=== PATIENT | female | born 1980 ===

== ENCOUNTER 2019-10-09 22:21 | Emergency (ER) | payer OTHER ==
[2019-10-09] MEDS ORDERED: LIDOCAINE 1% 20 ML MDV ONE (23:23)
[2019-10-09] MEDS ORDERED: HYDROCODONE/APAP 5/325 MG TAB ONE (23:23)
[2019-10-09] MEDS ORDERED: LIDOCAINE 1% W/EPI 1:100,000 MDV 20 ML VIAL ONE (23:26)
--- NOTE | 2019-10-09 23:41 | EDPHYS ---
Physician Documentation [facility] Name: Bing Mathew Age: 39 yrs Sex: Female : 1980 Arrival Date: 10/09/2019 Time: 22:24 Bed 14 Private MD: ED Physician Vincenzo Sesay HPI: 10/09 23:09 This 39 yrs old Female presents to ER via Ambulatory with complaints of Laceration To snw Foot. 23:09 The patient has a laceration related to: pushed foot too far under the base of a bar snw and a metal portion cut the dorsum of the foot. bleeding controlled occurred at home. The laceration(s) is(are) located on the left foot. Onset: The symptoms/episode began/occurred suddenly, just prior to arrival. Associated signs and symptoms: The patient has no apparent associated signs or symptoms. The patient has not experienced similar symptoms in the past. It is unknown whether or not the patient has recently seen a physician. tetanus up to date. 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 - Social history:: Smoking status: Patient/guardian denies using tobacco. - Ebola Screening: : No symptoms or risks identified at this time. ROS: 23:08 Constitutional: Negative for fever, chills, and weight loss, Eyes: Negative for injury, snw pain, redness, and discharge, ENT: Negative for injury, pain, and discharge, Neck: Negative for injury, pain, and swelling, Cardiovascular: Negative for chest pain, palpitations, and edema, Respiratory: Negative for shortness of breath, cough, wheezing, and pleuritic chest pain, Abdomen/GI: Negative for abdominal pain, nausea, vomiting, diarrhea, and constipation, Back: Negative for injury and pain, : Negative for injury, bleeding, discharge, and swelling, Skin: Negative for injury, rash, and discoloration, Neuro: Negative for headache, weakness, numbness, tingling, and seizure. 23:08 MS/extremity: Positive for injury or acute deformity, laceration, of the left foot. Exam: 23:06 Constitutional: This is a well developed, well nourished patient who is awake, alert, snw and in no acute distress. Head/Face: Normocephalic, atraumatic. Eyes: Pupils equal round and reactive to light, extra-ocular motions intact. Lids and lashes normal. Conjunctiva and sclera are non-icteric and not injected. Cornea within normal limits. Periorbital areas with no swelling, redness, or edema. ENT: Nares patent. No nasal discharge, no septal abnormalities noted. Tympanic membranes are normal and external auditory canals are clear. Oropharynx with no redness, swelling, or masses, exudates, or evidence of obstruction, uvula midline. Mucous membranes moist. Neck: Trachea midline, no thyromegaly or masses palpated, and no cervical lymphadenopathy. Supple, full range of motion without nuchal rigidity, or vertebral point tenderness. No Meningismus. Chest/axilla: Normal chest wall appearance and motion. Nontender with no deformity. No lesions are appreciated. Cardiovascular: Regular rate and rhythm with a normal S1 and S2. No gallops, murmurs, or rubs. Normal PMI, no JVD. No pulse deficits. Respiratory: Lungs have equal breath sounds bilaterally, clear to auscultation and percussion. No rales, rhonchi or wheezes noted. No increased work of breathing, no retractions or nasal flaring. Abdomen/GI: Soft, non-tender, with normal bowel sounds. No distension or tympany. No guarding or rebound. No evidence of tenderness throughout. Back: No spinal tenderness. No costovertebral tenderness. Full range of motion. MS/ Extremity: Pulses equal, no cyanosis. Neurovascular intact. Full, normal range of motion. Neuro: Awake and alert, GCS 15, oriented to person, place, time, and situation. Cranial nerves II-XII grossly intact. Motor strength 5/5 in all extremities. Sensory grossly intact. Cerebellar exam normal. Normal gait. Psych: Awake, alert, with orientation to person, place and time. Behavior, mood, and affect are within normal limits. 23:06 Skin: Appearance: normal except for affected area, injury, laceration(s), the wound is approximately 3 cm(s), with a depth of .5 cm(s), of the dorsum of left foot proximal to great toe, bleeding controlled, bleeding controlled, full ROM. Vital Signs: 22:34 BP 170 / 98; Pulse 88; Resp 16 S; Temp 97.7(O); Pulse Ox 98% on R/A; Weight 87.09 kg bb (R); Height 5 ft. 7 in. (170.18 cm) (R); Pain 3/10; 10/10 00:30 BP 151 / 84; Pulse 79; Resp 18; Pulse Ox 99% on R/A; wh 10/09 22:34 Body Mass Index 30.07 (87.09 kg, 170.18 cm) bb Laceration: 10/09 23:37 Wound Repair of 2.5cm ( 1.0in ) subcutaneous laceration to left first toe. Skin/tissue abdi flap noted.. Distal neuro/vascular/tendon intact. Anesthesia: Local anesthetic administered with 6 mls of 1% lidocaine w/ Epi. Wound prep: Copious irrigation. Skin closed with 5 1-0 Prolene using interrupted sutures and sterile technique. Dressed with Neosporin. Patient tolerated well. MDM: 22:49 Patient medically screened. [facility] 23:37 Data reviewed: vital signs, nurses notes. [facility] 10/09 23:11 Order name: Suture Tray Setup; Complete Time: 23:25 snw Administered Medications: 23:24 Not Given (Patient Refused): [place] 5 mg-325 mg 1 tabs PO once; RASS on ADMIN: Combtv4, wh Very Agttd3, Agttd2, Rstlss1, AlertClm0, Drwsy-1, Lt Sdtn-2, Mod Sdtn-3, Dp Sdtn-4, UnArsble-5 23:49 Drug: Lidocaine (1 %) 1 vials {Note: Adminstered by MD Sesay.} Volume: 20 ml; Route: wh Infiltration; 10/10 00:30 Follow up: Response: No adverse reaction Disposition: 10/09 23:37 Co-signature as Attending Physician, Vincenzo CHEW I agree with the assessment and [facility] plan of care. Disposition: 10/09/19 23:40 Discharged to Home. Impression: Laceration without foreign body, left foot. - Condition is Stable. - Discharge Instructions: Laceration Care, Adult, Laceration Care, Adult, [id number]. - Prescriptions for Keflex 500 mg Oral Capsule - take 1 capsule by ORAL route every 6 hours for 7 days; 28 capsule. Tylenol- Codeine #3 300-30 mg Oral Tablet - take 2 tablets by ORAL route every 6 hours As needed; 20 tablet. - Medication Reconciliation Form, Thank You Letter, Antibiotic Education, Prescription Opioid Use form. - Follow up: Private Physician; When: 2 - 3 days; Reason: Recheck today's complaints, Continuance of care, Re-evaluation by your physician. - Problem is new. - Symptoms have improved. Signatures: Vincenzo Sesay MD MD cha Therrien, Shelly, PRINTED CIRCUIT BOARD LAYOUT DESIGNER-C PRINTED CIRCUIT BOARD LAYOUT DESIGNER-Csnw Elizabeth Hernández RN RN Jaison Phillips Corrections: (The following items were deleted from the chart) 10/10 00:32 10/09 23:40 10/09/2019 23:40 Discharged to Home. Impression: Laceration without foreign wh body, left foot. Condition is Stable. Forms are Medication Reconciliation Form, Thank You Letter, Antibiotic Education, Prescription Opioid Use. Follow up: Private Physician; When: 2 - 3 days; Reason: Recheck today's complaints, Continuance of care, Re-evaluation by your physician. Problem is new. Symptoms have improved. abdi
--- NOTE | 2019-10-09 23:41 | ER ---
Nurse's Notes [facility] Name: Bing Mathew Age: 39 yrs Sex: Female : 1980 Arrival Date: 10/09/2019 Time: 22:24 Bed 14 Private MD: Diagnosis: Laceration without foreign body, left foot Presentation: 10/09 22:32 Presenting complaint: Patient states: received laceration to left foot approx 30 mins bb ago when she slid her foot under a table. Transition of care: patient was not received from another setting of care. Complicating Factors: There are no complicating factors for this patient. Onset of symptoms was October 09, 2019. Risk Assessment: Do you want to hurt yourself or someone else? Patient reports no desire to harm self or others. Initial Sepsis Screen: Does the patient meet any 2 criteria? No. Patient's initial sepsis screen is negative. Does the patient have a suspected source of infection? No. Patient's initial sepsis screen is negative. Care prior to arrival: None. 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 - Social history:: Smoking status: Patient/guardian denies using tobacco. - Ebola Screening: : No symptoms or risks identified at this time. Screenin:47 Abuse screen: Denies threats or abuse. Denies injuries from another. Nutritional wh screening: No deficits noted. Tuberculosis screening: No symptoms or risk factors identified. Fall Risk None identified. Assessment: 23:04 General: Appears in no apparent distress. Behavior is calm, cooperative, appropriate wh for age. Pain:. 23:04 Pain: Complains of pain in left foot Pain does not radiate. Pain currently is 4 out of wh 10 on a pain scale. Quality of pain is described as aching, Pain began 1 hour ago. Neuro: Level of Consciousness is awake, alert, obeys commands, Oriented to person, place, time, situation, Appropriate for age. Cardiovascular: Capillary refill < 3 seconds. Respiratory: Airway is patent Respiratory effort is even, unlabored, Respiratory pattern is regular, symmetrical. GI: Abdomen is flat, non-distended. : No signs and/or symptoms were reported regarding the genitourinary system. EENT: No signs and/or symptoms were reported regarding the EENT system. Derm: Skin is intact, is healthy with good turgor, Skin is pink, warm \T\ dry. normal. Musculoskeletal: Circulation, motion, and sensation intact. Injury Description: Laceration is clean, 0.5 to 2.5 cm long, not bleeding. 10/10 00:30 Reassessment: Patient appears in no apparent distress at this time. No changes from previously documented assessment. Patient and/or family updated on plan of care and expected duration. Pain level reassessed. Patient is alert, oriented x 3, equal unlabored respirations, skin warm/dry/pink. Vital Signs: 10/09 22:34 BP 170 / 98; Pulse 88; Resp 16 S; Temp 97.7(O); Pulse Ox 98% on R/A; Weight 87.09 kg bb (R); Height 5 ft. 7 in. (170.18 cm) (R); Pain 3/10; 10/10 00:30 BP 151 / 84; Pulse 79; Resp 18; Pulse Ox 99% on R/A; wh 10/09 22:34 Body Mass Index 30.07 (87.09 kg, 170.18 cm) ED Course: 10/09 22:24 Patient arrived in ED. cl3 22:33 Triage completed. bb 22:34 Arm band placed on Patient placed in an exam room, on a stretcher, on pulse oximetry. bb Family accompanied patient. 22:41 Jaison Wakefield is Primary Nurse. 22:48 Patient has correct armband on for positive identification. Bed in low position. Call light in reach. Side rails up X 1. Pulse ox on. NIBP on. 22:49 Vincenzo Sesay MD is Attending Physician. abdi 23:02 Queta Moss FNP-C [facility]. snw 23:40 Assist provider with laceration repair on left foot that was 2.5 cm. or less using sutures. Set up tray. Performed by Vincenzo Sesay MD Dressed with 4X4s, Patient tolerated well. Patient did not have IV access during this emergency room visit. Administered Medications: 23:24 Not Given (Patient Refused): [place] 5 mg-325 mg 1 tabs PO once; RASS on ADMIN: Combtv4, wh Very Agttd3, Agttd2, Rstlss1, AlertClm0, Drwsy-1, Lt Sdtn-2, Mod Sdtn-3, Dp Sdtn-4, UnArsble-5 23:49 Drug: Lidocaine (1 %) 1 vials {Note: Adminstered by MD Sesay.} Volume: 20 ml; Route: wh Infiltration; 10/10 00:30 Follow up: Response: No adverse reaction Outcome: 10/09 23:40 Discharge ordered by . abdi 10/10 00:31 Discharged to home ambulatory, with family. Condition: stable Discharge instructions given to patient, family, Instructed on discharge instructions, follow up and referral plans. no drinking with medication, no driving heavy equipment, medication usage, wound care, Demonstrated understanding of instructions, follow-up care, medications, wound care, Prescriptions given X 2. 00:32 Patient left the ED. Signatures: Vincenzo Sesay MD MD cha Therrien, Shelly, ENTRY LEVEL SALES CONSULTANT-C ENTRY LEVEL SALES CONSULTANT-Csnw Elizabeth Hernández, VIANEY RN Jaison Phillips Charde cl3
[2019-10-10 01:41] VITALS: TEMP 97.7
[2019-10-10 01:42] VITALS: BP 151/84; O2SAT 99
== END 2019-10-10 00:32 | disposition home or self-care (01) ==
LOC: ER 22:21
PROC: 0JQR0ZZ Repair Left Foot Subcutaneous Tissue and Fascia, Open Approach (ICD-10-PCS; principal; 2019-10-10)
DX: S91.312A Laceration without foreign body, left foot, initial encounter (principal); W26.8XXA Contact with other sharp object(s), not elsewhere classified, initial encounter; Y93.89 Activity, other specified; Y92.9 Unspecified place or not applicable; Z88.0 Allergy status to penicillin; Z91.040 Latex allergy status
CPT/HCPCS: 99284